=== PATIENT | male | born 1995 | race Hispanic/Latino ===

== ENCOUNTER 2019-11-18 20:18 | Emergency (ER) | payer SELFPAY ==
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
[2019-11-18] MEDS ORDERED: HYDROCODONE/APAP 5/325 MG TAB ONE (23:42)
[2019-11-18 23:56] VITALS: TEMP 98.6
[2019-11-18 23:57] VITALS: BP 146/91; O2SAT 96
--- NOTE | 2019-11-19 08:24 | RAD REPORT ---
EXAM DESCRIPTION: RAD - Foot Right 3 View - 11/18/2019 9:16 pm CLINICAL HISTORY: Right foot pain following trauma, unknown mechanism COMPARISON: None. FINDINGS: Lateral view shows a small crescent-shaped bony density along the anterior or dorsal nagi n of the talus near the talonavicular joint. This may be a small bone avulsion and correlation is nee ded with pain localizing to the anterior talus or anterior margin of the joint space. No other evidence for fracture or acute bone finding. No joint abnormality seen. There is no plantar spur. Dorsal soft tissues are mildly edematous. No foreign body. IMPRESSION: Suspected small bone avulsion over the anterior dorsal margin of the talus.
--- NOTE | 2019-11-19 10:04 | RAD REPORT ---
EXAM DESCRIPTION: CT - CTHCSPWOC - 11/18/2019 10:17 pm CLINICAL HISTORY: HTN;Pain COMPARISON: None Available. TECHNIQUE: Multiple helical axial tomographic images were obtained of the head and cervical spine wi thout intravenous contrast. Coronal and sagittal reformatted images were obtained. This exam was perf ormed according to our departmental dose-optimization program, which includes automated exposure cont rol, adjustment of the mA and/or kV according to patient size and/or use of iterative reconstruction technique. FINDINGS: There is no acute intracranial hemorrhage. No mass. No midline shift. No ventriculomegaly. Sharif-white matter differentiation is maintained. Paranasal sinuses are clear. Mastoid air cells and middle ear spaces are clear. Orbits and orbital co ntents are unremarkable. No acute calvarial fracture. No evidence for an acute fracture of the cervical spine. Vertebral body heights and disc spaces appea r maintained. There is nonspecific straightening of normal cervical lordosis. No subluxation. Surrounding soft tissues are unremarkable. IMPRESSION: 1. No acute intracranial process. 2. No evidence for an acute fracture of the cervical spine. Electronically signed by: Toby Hoffman MD 11/18/2019 10:53 PM [facility] Due to temporary technical issues with the PACS/Fluency reporting system, reports are being signed by the in house radiologist as a courtesy to ensure prompt reporting. The interpreting radiologist is f ully responsible for the content of the report.
== END 2019-11-18 23:47 | disposition home or self-care (01) ==
LOC: ER 20:18
DX: S93.691A Other sprain of right foot, initial encounter (principal); X58.XXXA Exposure to other specified factors, initial encounter; Y93.9 Activity, unspecified; Y92.89 Other specified places as the place of occurrence of the external cause; I10 Essential (primary) hypertension
CPT/HCPCS: 70450; 72125; 99283

== ENCOUNTER 2019-11-23 13:09 | Emergency (ER) | payer SELFPAY ==
--- NOTE | 2019-11-23 14:28 | ER ---
Nurse's Notes [facility] Name: Jordy Enriquez Age: 24 yrs Sex: Male : 1995 Arrival Date: 11/23/2019 Time: 13:13 Bed 28 Private MD: Diagnosis: Person with feared health complaint in whom no diagnosis is made Presentation: 11/23 13:42 Presenting complaint: Patient states: last week i came in on new years because i tw2 sprained my ankle, my pressure was high then, they rechecked it then and it was still high, they gave me a pill, i went to the clinic in [place] for a check to go back to work and my pressure is still high. Transition of care: patient was not received from another setting of care. Onset of symptoms was November 23, 2019. Risk Assessment: Do you want to hurt yourself or someone else? Patient reports no desire to harm self or others. Initial Sepsis Screen: Does the patient meet any 2 criteria? No. Patient's initial sepsis screen is negative. Does the patient have a suspected source of infection? No. Patient's initial sepsis screen is negative. Care prior to arrival: None. 13:42 Method Of Arrival: Ambulatory tw2 13:42 Acuity: JEM 3 tw2 Triage Assessment: 13:44 General: Appears in no apparent distress. obese, Behavior is calm, cooperative, tw2 appropriate for age. Pain: Denies pain. Historical: - Allergies: 13:46 No Known Allergies; tw2 - Home Meds: 13:46 None [Active]; tw2 - PMHx: 13:46 None; tw2 - PSHx: 13:46 None; tw2 - Immunization history:: Adult Immunizations. - Social history:: Smoking status: . - Ebola Screening: : Patient denies travel to an Ebola-affected area in the 21 days before illness onset. Screenin:57 Abuse screen: Denies threats or abuse. Denies injuries from another. Nutritional rv screening: No deficits noted. Tuberculosis screening: No symptoms or risk factors identified. Fall Risk None identified. Assessment: 13:57 General: Appears in no apparent distress. comfortable, Behavior is calm, cooperative. rv Pain: Denies pain. Neuro: Level of Consciousness is awake, alert, obeys commands, Oriented to person, place, time, situation. Cardiovascular: Patient's skin is warm and dry. Rhythm is regular. Cardiovascular: Reports high blood pressure. Respiratory: Airway is patent. Vital Signs: 13:45 BP 188 / 199; Pulse 86; Resp 17; Temp 98.2(TE); Pulse Ox 100% on R/A; Weight 98.88 kg; tw2 Height 5 ft. 5 in. (165.10 cm); Pain 0/10; 13:59 BP 170 / 116; Pulse 82; Resp 18; Pulse Ox 98% on R/A; rv 14:41 BP 140 / 93; Pulse 81; Resp 17; Pulse Ox 100% on R/A; rv 13:45 Body Mass Index 36.28 (98.88 kg, 165.10 cm) tw2 ED Course: 13:13 Patient arrived in ED. as 13:44 Triage completed. tw2 13:44 Arm band placed on. tw2 13:48 Derrek Carcamo, RN is Primary Nurse. rv 13:54 Kulwinder Wilcox MD is Attending Physician. felisha 13:54 [facility]ohan Ricketts [facility] 13:54 Attending Physician role handed off by Kulwinder Wilcox MD jm 13:54 Bautista Luis MD is Attending Physician. [facility] 13:58 Patient has correct armband on for positive identification. Placed in gown. Bed in low rv position. Call light in reach. Side rails up X 1. alarm security or surveillance monitor on. Pulse ox on. NIBP on. 14:41 No provider procedures requiring assistance completed. Patient did not have IV access rv during this emergency room visit. Administered Medications: No medications were administered Outcome: 14:26 Discharge ordered by . [facility] 14:42 Discharged to home ambulatory. rv 14:42 Condition: good 14:42 Discharge instructions given to patient, Instructed on discharge instructions, follow up and referral plans. Demonstrated understanding of instructions, follow-up care. 14:42 Patient left the ED. rv Signatures: Kulwinder Wilcox MD MD cha Mickail, Joel, PA PA jmm Martinez, Amelia as Wise, Tara, BRISEYDA RN tw2 Derrek Carcamo, BRISEYDA RN rv Corrections: (The following items were deleted from the chart) 13:46 13:45 BP 188 / 199; Pulse 119bpm; Resp 86bpm; Pulse Ox 100% RA; Temp 98.2F Temporal; tw2 98.88 kg; Height 5 ft. 5 in.; BMI: 36.2; Pain 0/10; tw2
--- NOTE | 2019-11-23 14:29 | EDPHYS ---
Physician Documentation [facility] Name: Jordy Enriquez Age: 24 yrs Sex: Male : 1995 Arrival Date: 11/23/2019 Time: 13:13 Bed 28 Private MD: ED Physician Bautista Luis HPI: 11/23 13:54 This 24 yrs old Male presents to ER via Ambulatory with complaints of High jmm Blood Pressure. 13:54 The patient has elevated blood pressure and discovered this at hospital. Onset: The jmm symptoms/episode began/occurred at an unknown time. Associated signs and symptoms: Pertinent negatives: chest pain, dizziness, dyspnea, headache, lightheadedness, nausea, visual changes, vomiting, weakness. Patient states his work advised him to go to clinic for further evaluation of BP. Patient states he was anxious at clinic. Patient denies WOODS, SOB, difficulty with urination, fever. . Historical: - Allergies: 13:46 No Known Allergies; tw2 - Home Meds: 13:46 None [Active]; tw2 - PMHx: 13:46 None; tw2 - PSHx: 13:46 None; tw2 - Immunization history:: Adult Immunizations. - Social history:: Smoking status: . - Ebola Screening: : Patient denies travel to an Ebola-affected area in the 21 days before illness onset. ROS: 13:54 Constitutional: Negative for fever, chills, and weight loss, Cardiovascular: Negative jmm for chest pain, palpitations, and edema, Respiratory: Negative for shortness of breath, cough, wheezing, and pleuritic chest pain, Abdomen/GI: Negative for abdominal pain, nausea, vomiting, diarrhea, and constipation, : Negative for injury, bleeding, discharge, and swelling, Neuro: Negative for headache, weakness, numbness, tingling, and seizure. 13:54 All other systems are negative. Exam: 13:54 Constitutional: This is a well developed, well nourished patient who is awake, alert, jmm and in no acute distress. Head/Face: atraumatic. Eyes: EOMI, no conjunctival erythema appreciated ENT: Moist Mucus Membranes Neck: Trachea midline, Supple Chest/axilla: Normal chest wall appearance and motion. Cardiovascular: Regular rate and rhythm. No edema appreciated Respiratory: Normal respirations, no respiratory distress appreciated Abdomen/GI: Non distended, soft Back: Normal ROM Skin: General appearance color normal MS/ Extremity: Moves all extremities, no obvious deformities appreciated, no edema noted to the lower extremities Neuro: Awake and alert, normal gait Psych: Behavior is normal, Mood is normal, Patient is cooperative and pleasant Vital Signs: 13:45 BP 188 / 199; Pulse 86; Resp 17; Temp 98.2(TE); Pulse Ox 100% on R/A; Weight 98.88 kg; tw2 Height 5 ft. 5 in. (165.10 cm); Pain 0/10; 13:59 BP 170 / 116; Pulse 82; Resp 18; Pulse Ox 98% on R/A; rv 14:41 BP 140 / 93; Pulse 81; Resp 17; Pulse Ox 100% on R/A; rv 13:45 Body Mass Index 36.28 (98.88 kg, 165.10 cm) tw2 MDM: 13:54 Patient medically screened. [facility] 14:21 Data reviewed: vital signs, nurses notes. Counseling: I had a detailed discussion with shreya the patient and/or guardian regarding: the historical points, exam findings, and any diagnostic results supporting the discharge/admit diagnosis, the need for outpatient follow up, to return to the emergency department if symptoms worsen or persist or if there are any questions or concerns that arise at home. ED course: Patient is alert and non toxic in appearance in the ED. Patient is asymptomatic. Advised to establish PCP for further monitoring of BP and otherwise given return precautions. Patient understood and agrees with the plan of care. . Administered Medications: No medications were administered Disposition: 11/24 07:03 Co-signature as Attending Physician, Bautista Luis MD I agree with the assessment and [facility] plan of care. Disposition: 11/23/19 14:26 Discharged to Home. Impression: Person with feared health complaint in whom no diagnosis is made. - Condition is Stable. - Discharge Instructions: Hypertension. - Medication Reconciliation Form, Thank You Letter, Antibiotic Education, Prescription Opioid Use form. - Follow up: Private Physician; When: 2 - 3 days; Reason: Recheck today's complaints, Continuance of care, Re-evaluation by your physician. Signatures: Kulwinder Wilcox MD MD cha Mickail, Joel, PA PA jmm Wise, Tara, RN RN tw2 Carlos Alberto, Derrek, RN RN rv Corrections: (The following items were deleted from the chart) 11/23 14:42 14:26 11/23/2019 14:26 Discharged to Home. Impression: Person with feared health rv complaint in whom no diagnosis is made. Condition is Stable. Forms are Medication Reconciliation Form, Thank You Letter, Antibiotic Education, Prescription Opioid Use. Follow up: Private Physician; When: 2 - 3 days; Reason: Recheck today's complaints, Continuance of care, Re-evaluation by your physician. shreya
[2019-11-23 14:59] VITALS: TEMP 98.2
[2019-11-23 15:02] VITALS: BP 140/93; O2SAT 100
== END 2019-11-23 14:42 | disposition home or self-care (01) ==
LOC: ER 13:09
DX: I10 Essential (primary) hypertension (principal); Z71.1 Person with feared health complaint in whom no diagnosis is made
CPT/HCPCS: 99284